=== PATIENT | male | born 1995 | race Caucasian/White ===

== ENCOUNTER → 2024-01-29 13:28 | Outpatient (BNVA) | payer OTHER, SELFPAY | PROVIDERS: Visit Provider Emergency Medicine | DX: S93.491A Sprain of other ligament of right ankle, initial encounter (principal); Y93.68 Activity, volleyball (beach) (court) | CPT/HCPCS: 73610 ==

== ENCOUNTER → 2024-02-07 17:03 | Outpatient (BNVA) | payer OTHER, SELFPAY | PROVIDERS: Visit Provider Emergency Medicine | DX: S93.491D Sprain of other ligament of right ankle, subsequent encounter (principal); W19.XXXD Unspecified fall, subsequent encounter | CPT/HCPCS: 73610 ==

== ENCOUNTER 2024-02-25 15:53 | Outpatient (CLI) | payer OTHER, SELFPAY | END 2024-02-25 15:54 | disposition home or self-care (01) | LOC: SPT 15:54 | PROVIDERS: Visit Provider Podiatrist Foot & Ankle Surgery | DX: Z46.89 Encounter for fitting and adjustment of other specified devices (principal); S93.409D Sprain of unspecified ligament of unspecified ankle, subsequent encounter; X58.XXXD Exposure to other specified factors, subsequent encounter | CPT/HCPCS: 97760; L1902 ==